=== PATIENT | female | born 1965 | race African-American/Black ===

== ENCOUNTER 2023-06-12 11:45 | Observation (INO) ==
[~2023-06-12 11:45] MED LIST: Bupivacaine 0.5% SDV PF 30ML VIAL ONE; Naloxone 0.4 mg VIAL 0.4 mg/ml 1 ml VIAL IV PRN
[2023-06-12] MEDS ORDERED: ceFAZolin 2 GM PREMIX 2 GM/50 ML BAG ONE (12:08)
[2023-06-12 13:20] LABS: Hematocrit 33.6 % (35-45); Hemoglobin 11.1 g/dL (11.5-14.3)
[2023-06-12] MEDS ORDERED: Rocuronium 50 mg VIAL 10 mg/ml 5 ml VIAL (50 mg) ONE ×2 (16:21→18:04)
[2023-06-12] MEDS ORDERED: Bupivacaine 0.25% SDV 30 ML ONE (16:21)
[2023-06-12] MEDS ORDERED: Midazolam 2 mg/2 ml VIAL 1 mg/ml 2 ml VIAL (2 mg) ONE (16:25)
[2023-06-12] MEDS ORDERED: Ondansetron 4 mg VIAL 2 MG/ML 2 ml VIAL ONE (16:25)
[2023-06-12] MEDS ORDERED: Dexamethasone IV 4 MG/ML VIAL 1 ml VIAL ONE (16:25)
[2023-06-12] MEDS ORDERED: fentaNYL 100 mcg/2 ml 50 MCG/ML VIAL ONE ×3 (16:28→21:33)
[2023-06-12] MEDS ORDERED: Acetaminophen IV 1 GM/100ML 1,000 MG/100 ML BAG IV ONE (16:41)
[2023-06-12] MEDS ORDERED: Glycopyrrolate IV 0.2 MG/ML 1 ML VIAL ONE ×2 (16:51→17:45)
[2023-06-12] MEDS ORDERED: Metoprolol Tartrate 5 mg VIAL 5 ml VIAL (1 mg/ml) ONE (17:12)
[2023-06-12] MEDS ORDERED: Ondansetron 4 mg VIAL 2 MG/ML 2 ml VIAL IV PRN (21:23)
[2023-06-12] MEDS ORDERED: Morphine 2 MG/ML SYRINGE IV PRN (21:35)
[2023-06-12] MEDS ORDERED: Dextrose 50% Syringe 50 ml 25 GM/50 ML SYRINGE IV PUSH PRN (21:37)
[2023-06-12] MEDS: fentaNYL 100 mcg/2 ml 50 MCG/ML VIAL IV PRN (21:38)
[2023-06-12] MEDS ORDERED: hydrALAZINE 20 mg/ml 1 ML Vial IV IV SLOW PU PRN (21:41)
[2023-06-12] MEDS: Lactated Ringers 1000 ml BAG 1,000 ML IV SCH (23:04)
[2023-06-13] MEDS: Labetalol IV 5 MG/ML 20 ml VIAL IV PUSH ONE (00:42)
[2023-06-13] MEDS: Buffered Lidocaine 1% SYRIN 1 ml INTRADERM ONE (00:51)
[2023-06-13] MEDS: Piperacillin/Tazobac 3.375 BAG 3.375 GM/100 ML BAG IV SCH (01:59)
[2023-06-14 14:14] VITALS: BP 136/75
== END 2023-06-14 15:30 | disposition home or self-care (01) ==
LOC: OR 11:45 → SSU 11:45
PROVIDERS: ADMIT Surgery Surgical Critical Care; ATTEND Surgery Surgical Critical Care